=== PATIENT | male | born 1960 | race Caucasian/White ===

== ENCOUNTER 2017-07-24 11:13 | Emergency (ER) | payer BC ==
[~2017-07-24] VITALS: Ht 182.9 cm; Wt 101.4 kg
[2017-07-24 11:52] LABS: MCH 30.4 PG (29.0-34.0); MCHC 33.6 G/DL (30.0-36.0); MCV 90.4 FL (86-99); PLATELET COUNT 209 K/uL (156-360); RBC DIS.WIDTH-CV 12.4 % (11.8-14.6); RBC DIS.WIDTH-SD 41.1 % (39-53); WHITE BLOOD COUNT 9.9 K/uL (4.1-10.2)
[2017-07-24 12:02] LABS: CHLORIDE 106 mEq/L (99-109); POTASSIUM 4.3 mEq/L (3.7-5.4); SODIUM 141 mEq/L (136-147)
[2017-07-24 12:04] LABS: GLUCOSE 95 mg/dL (70-99)
[2017-07-24 12:05] LABS: ANION GAP 9 MEQ/L (2-14)
[2017-07-24 12:07] LABS: GFR ESTIMATE (CALCULATED) > 59 mL/min/
[2017-07-24 12:08] LABS: UREA NITROGEN (BUN) 20 mg/dL (9-23)
[2017-07-24] MEDS ORDERED: PERCOCET 5/31 TABLET PO (13:03)
[2017-07-24] MEDS ORDERED: ZOFRAN ODT4 MG PO (13:03)
[2017-07-24] MEDS ORDERED: FLOMAX0.4 MG PO (13:03)
[2017-07-24 13:19] VITALS: BP 114/69
== END 2017-07-24 13:24 | disposition home or self-care (01) ==
LOC: EME 11:13
DX: N20.0 Calculus of kidney (principal); K21.9 Gastro-esophageal reflux disease without esophagitis; F41.9 Anxiety disorder, unspecified; Z88.8 Allergy status to other drugs, medicaments and biological substances
CPT/HCPCS: 74176; 80048; 81003; 85027; 99281; 99284

== ENCOUNTER 2017-12-26 08:37 | Emergency (ER) | payer BC ==
[~2017-12-26] VITALS: Ht 182.9 cm; Wt 101.2 kg
[~2017-12-26 08:37] MED LIST: FLOMAX0.4 MG PO; PERCOCET 5/31 TABLET PO; ZOFRAN ODT4 MG PO
[2017-12-26 09:31] LABS: APPEARANCE SL.HAZY ((CLEAR)); BILIRUBIN NEGATIVE; BLOOD LARGE; COLOR YELLOW ((YELLOW)); GLUCOSE (STRIP) NEGATIVE; KETONES NEGATIVE; LEUKOCYTES NEGATIVE; NITRITE NEGATIVE; PROTEIN (STRIP) 100; SPECIFIC GRAVITY 1.025 (1.000-1.030); UROBILINOGEN 0.2 MG/DL (0.2-1.0)
[2017-12-26 09:42] LABS: HEMATOCRIT 46.9 % (38.0-50.0); HEMOGLOBIN 16.3 G/DL (12.5-16.6); MCH 31.5 PG (29.0-34.0); MCHC 34.8 G/DL (30.0-36.0); MCV 90.5 FL (86-99); PLATELET COUNT 245 K/uL (156-360); RBC DIS.WIDTH-CV 12.6 % (11.8-14.6); RED BLOOD COUNT 5.18 M/uL (4.00-5.50); WHITE BLOOD COUNT 7.7 K/uL (4.1-10.2)
[2017-12-26 09:45] LABS: BACTERIA NONE SEEN /HPF; EPITHELIAL CELLS NONE SEEN /HPF; MUCUS 4+ /LPF; RED BLOOD CELLS TNTC /HPF (0-5); UCUL ADDED? YES; WHITE BLOOD CELLS 0-5 /HPF (0-5)
[2017-12-26 10:22] LABS: ALBUMIN 4.4 G/DL (3.2-4.8); ALKALINE PHOSPHATASE 127 IU/L (3-129); ALT (GPT) 30 IU/L (3-49); AST (GOT) 21 IU/L (2-34); CHLORIDE 102 MEQ/L (99-109); GFR ESTIMATE (CALCULATED) > 59 mL/min/ (58.99-99999); GLUCOSE 127 mg/dL (70-99); LIPASE 21 U/L (1.0-51.0); POTASSIUM 3.3 MEQ/L (3.7-5.4); SODIUM 140 MEQ/L (136-147); TOTAL BILIRUBIN 0.9 MG/DL (0.0-1.0); TOTAL PROTEIN 7.1 G/DL (6.4-8.3); UREA NITROGEN (BUN) 15 mg/dL (9-23)
[2017-12-26] MEDS ORDERED: ZOFRAN4 MG SL (11:30)
[2017-12-26] MEDS ORDERED: FLOMAX0.4 MG PO (11:30)
[2017-12-26] MEDS ORDERED: PERCOCET 5/31 TABLET PO (11:30)
[2017-12-26 12:43] VITALS: BP 123/65
== END 2017-12-26 12:44 | disposition home or self-care (01) ==
LOC: EME 08:37
PROVIDERS: Physician Assistant
DX: N13.2 Hydronephrosis with renal and ureteral calculous obstruction (principal); N44.2 Benign cyst of testis; N50.3 Cyst of epididymis; K21.9 Gastro-esophageal reflux disease without esophagitis; F41.9 Anxiety disorder, unspecified; Z87.442 Personal history of urinary calculi; Z88.8 Allergy status to other drugs, medicaments and biological substances
CPT/HCPCS: 74176; 76870; 80053; 81003; 83690; 85027; 87086; 99281; 99284; J2405; J3010; J7030

== ENCOUNTER 2018-01-30 05:27 | Day surgery (SDC) | payer BC ==
[~2018-01-30] VITALS: Ht 182.9 cm; Wt 97.5 kg
[~2018-01-30 05:27] MED LIST changes: +EFFEXOR37.5 MG PO; +XANAX0.5 MG PO; +ZOFRAN4 MG SL
[2018-01-30 05:57] VITALS: BP 123/70
[2018-01-30] MEDS ORDERED: NORCO 5/3251 TABLET PO (09:30)
[2018-01-30 10:30] VITALS: BP 113/62
[2018-01-30 11:15] VITALS: BP 118/56
[2018-01-30 11:35] VITALS: BP 110/59
[2018-01-30 12:30] VITALS: BP 123/71
== END 2018-01-30 12:45 | disposition home or self-care (01) ==
LOC: SDC 05:27
PROC: 0WUF4JZ Supplement Abdominal Wall with Synthetic Substitute, Percutaneous Endoscopic Approach (ICD-10-PCS; principal; 2018-01-30)
DX: K43.9 Ventral hernia without obstruction or gangrene (principal); E66.3 Overweight; Z68.29 Body mass index [BMI] 29.0-29.9, adult; F41.9 Anxiety disorder, unspecified; I45.10 Unspecified right bundle-branch block; K21.9 Gastro-esophageal reflux disease without esophagitis; I34.0 Nonrheumatic mitral (valve) insufficiency; I37.1 Nonrheumatic pulmonary valve insufficiency
CPT/HCPCS: J0690; J1100; J1170; J2250; J2405; J2710; J3010; J7643